=== PATIENT | male | born 1950 | race Caucasian/White ===

== ENCOUNTER 2018-10-05 00:10 | Inpatient (IN) | payer MEDICARE, OTHER ==
[2018-10-05] MEDS ORDERED: ONDANSETRON 4 MG INJ IV ×2 (02:00→07:00)
[2018-10-05] MEDS ORDERED: ACETAMINOPHEN 325 MG TAB PO ×2 (02:00→07:00)
[2018-10-05] MEDS: ONDANSETRON 4 MG INJ IV (02:24)
[2018-10-05] MEDS: morphine 4 MG/ML VIAL IV (02:24)
[2018-10-05 03:00] LABS: ADD MAN DIFF? NO
[2018-10-05 03:01] LABS: ABNORMAL IP MESSAGE 1; BASOPHILS % 0.4 % (0.0-2.0); EOSINOPHILS # 0.1 10^3/ul (0.0-0.5); EOSINOPHILS % 1.6 % (0.0-7.0); HEMATOCRIT 33.8 % (42.0-52.0); HEMOGLOBIN 10.6 g/dl (14.0-18.0); LYMPHOCYTES # 0.7 10^3/ul (0.8-2.9); LYMPHOCYTES % 9.2 % (15.0-51.0); MEAN CORPUSCULAR HEMOGLOBIN 28.5 pg (29.0-33.0); MEAN CORPUSCULAR HGB CONC 31.4 g/dl (32.0-37.0); MEAN CORPUSCULAR VOLUME 90.9 fl (82.0-101.0); MEAN PLATELET VOLUME 9.7 fl (7.4-10.4); MONOCYTE # 0.6 10^3/ul (0.3-0.9); MONOCYTES % 7.8 % (0.0-11.0); NEUTROPHILS % 80.7 % (39.0-77.0); PLATELET COUNT 88 10^3/UL (140-415); POSITIVE DIFF @See below; RED BLOOD COUNT 3.72 10^6/ul (4.70-6.10)
[2018-10-05 03:01] LABS: WHITE BLOOD COUNT 7.4 10^3/ul (4.8-10.8)
[2018-10-05 03:20] LABS: ANION GAP 8 (5-13); BLOOD UREA NITROGEN 34 mg/dl (7-20); CALCIUM 9.2 mg/dl (8.4-10.2); CARBON DIOXIDE 24 mmol/L (21-31); CHLORIDE 107 mmol/L (97-110); CREATININE 1.75 mg/dl (0.61-1.24); Estimated GFR 39 mL/min (>60); GLUCOSE 128 mg/dl (70-220); POTASSIUM 4.2 mmol/L (3.5-5.1); SODIUM 139 mmol/L (135-144)
[2018-10-05 03:22] LABS: INR 1.23; PROTIME 15.6 Sec (11.9-14.9); PT RATIO 1.2
[2018-10-05] MEDS ORDERED: HYDROCODONE/APAP (5/325) TAB PO (07:00)
[2018-10-05] MEDS ORDERED: ALBUTEROL/IPRATROPIUM (NEB) 3 ML AMP HHN (07:00)
[2018-10-05] MEDS ORDERED: NACL 0.9% 3 ML SYG IV (07:00)
[2018-10-05] MEDS ORDERED: GLUCOSE GEL 15 GRAM TUBE BUCCAL (08:00)
[2018-10-05] MEDS ORDERED: DEXTROSE 50% 50 ML SYRINGE IV ×2 (08:00)
[2018-10-05] MEDS ORDERED: GLUCAGON 1 MG INJ IM (08:00)
[2018-10-05] MEDS ORDERED: GLUCOSE GEL 15 GRAM TUBE PO ×2 (08:00)
[2018-10-05] MEDS: HYDROCODONE/APAP (5/325) TAB PO ×3 (08:57→21:50)
[2018-10-05] MEDS: HEPARIN 5,000 UNIT/1 ML VIAL SC ×2 (09:00→21:01)
[2018-10-05] MEDS: INSULIN ASPART [NOVOLOG] 3 ML PEN SC ×3 (09:00→17:39)
[2018-10-05] MEDS: FERROUS SULFATE (EC) 325 MG TAB PO (20:58)
[2018-10-05] MEDS: ASCORBIC ACID 500 MG TAB PO (20:59)
[2018-10-05] MEDS: APIXABAN 5 MG TABLET PO ×2 (20:59→21:00)
[2018-10-05] MEDS ORDERED: traMADol 50 MG TAB PO (21:30)
[2018-10-05] MEDS: MELATONIN 5 MG TABLET PO (23:05)
[2018-10-05] MEDS: DOCUSATE SODIUM 250 MG CAP PO (23:05)
[2018-10-06 01:30] LABS: CREATINE KINASE 34 IU/L (23-200)
[2018-10-06 01:39] LABS: CK INDEX 1.5
[2018-10-06 01:43] LABS: TROPONIN-I 0.017 ng/ml (0.000-0.120)
[2018-10-06] MEDS ORDERED: ACCU-CHEK XX (02:00)
[2018-10-06 05:12] LABS: ADD MAN DIFF? NO
[2018-10-06] MEDS: PANTOPRAZOLE (EC) 40 MG TAB PO (05:16)
[2018-10-06] MEDS: FUROSEMIDE 40 MG TAB PO ×2 (05:17→17:22)
[2018-10-06 05:19] LABS: ABNORMAL IP MESSAGE 1; BASOPHILS % 0.9 % (0.0-2.0); EOSINOPHILS # 0.3 10^3/ul (0.0-0.5); EOSINOPHILS % 5.5 % (0.0-7.0); HEMATOCRIT 32.3 % (42.0-52.0); LYMPHOCYTES % 21.4 % (15.0-51.0); MEAN CORPUSCULAR HEMOGLOBIN 28.7 pg (29.0-33.0); MEAN CORPUSCULAR VOLUME 92.6 fl (82.0-101.0); MEAN PLATELET VOLUME 9.6 fl (7.4-10.4); MONOCYTE # 0.4 10^3/ul (0.3-0.9); MONOCYTES % 8.4 % (0.0-11.0); NEUTROPHIL # 2.9 10^3/ul (1.6-7.5); NEUTROPHILS % 63.6 % (39.0-77.0); PLATELET COUNT 80 10^3/UL (140-415); POSITIVE DIFF @See below; RED BLOOD COUNT 3.49 10^6/ul (4.70-6.10); RED CELL DISTRIBUTION WIDTH 16.9 % (11.5-14.5)
[2018-10-06 05:19] LABS: WHITE BLOOD COUNT 4.5 10^3/ul (4.8-10.8)
[2018-10-06 05:47] LABS: CREATINE KINASE 26 IU/L (23-200)
[2018-10-06 05:58] LABS: ALANINE AMINOTRANSFERASE 31 IU/L (13-69); ALKALINE PHOSPHATASE 94 IU/L (42-121); ANION GAP 5 (5-13); ASPARTATE AMINO TRANSFERASE 39 IU/L (15-46); BILIRUBIN,INDIRECT 1.2 mg/dl (0-1.1); BILIRUBIN,TOTAL 1.2 mg/dl (0.2-1.3); BLOOD UREA NITROGEN 35 mg/dl (7-20); CALCIUM 8.7 mg/dl (8.4-10.2); CARBON DIOXIDE 26 mmol/L (21-31); CHLORIDE 105 mmol/L (97-110); CHOL/HDL RATIO 2.5 RATIO; CHOLESTEROL 98 mg/dl (100-200); CREATININE 1.32 mg/dl (0.61-1.24); Estimated GFR 54 mL/min (>60); GLUCOSE 113 mg/dl (70-220); HDL CHOLESTEROL 38 mg/dl (31-75); LDL CHOLESTEROL,CALCULATED 46 mg/dl; MAGNESIUM 2.6 mg/dl (1.7-2.5); PHOSPHORUS 4.4 mg/dl (2.5-4.9); POTASSIUM 4.2 mmol/L (3.5-5.1); SODIUM 136 mmol/L (135-144); TRIGLYCERIDES 70 mg/dl (0-149)
[2018-10-06 05:58] LABS: HEMOGLOBIN A1C 5.4 % (0-5.9)
[2018-10-06 06:00] LABS: CK-MB 0.53 ng/ml (0.0-2.4); TROPONIN-I 0.017 ng/ml (0.000-0.120)
[2018-10-06] MEDS ORDERED: PANTOPRAZOLE (EC) 40 MG TAB PO (06:00)
[2018-10-06] MEDS ORDERED: DOCUSATE SODIUM 100 MG CAP PO (09:00)
[2018-10-06] MEDS: APIXABAN 5 MG TABLET PO (09:27)
[2018-10-06] MEDS: FERROUS SULFATE (EC) 325 MG TAB PO ×2 (09:28→13:00)
[2018-10-06] MEDS: ASCORBIC ACID 500 MG TAB PO (09:28)
[2018-10-06] MEDS: CHOLECALCIFEROL 2,000 UNIT CAP PO (09:29)
[2018-10-06] MEDS: DOCUSATE SODIUM 250 MG CAP PO ×2 (09:29→21:05)
[2018-10-06] MEDS: METOPROLOL 25 MG TAB PO (09:30)
[2018-10-06] MEDS: SPIRONOLACTONE 50 MG TAB PO (09:31)
[2018-10-06] MEDS: HYDROCODONE/APAP (5/325) TAB PO ×3 (09:39→23:49)
[2018-10-06 13:27] LABS: CREATINE KINASE 28 IU/L (23-200)
[2018-10-06 13:40] LABS: CK INDEX 1.9; CK-MB 0.52 ng/ml (0.0-2.4); TROPONIN-I < 0.012 ng/ml (0.000-0.120)
[2018-10-06 16:27] LABS: ADD UMIC NO; UR ASCORBIC ACID 40 mg/dL (NEGATIVE); UR BILIRUBIN (Dip) NEGATIVE (NEGATIVE); UR BLOOD (Dip) NEGATIVE (NEGATIVE); UR CLARITY CLEAR (CLEAR); UR COLOR YELLOW (YELLOW); UR GLUCOSE (Dip) NEGATIVE (NEGATIVE); UR KETONES (Dip) NEGATIVE (NEGATIVE); UR LEUKOCYTE ESTERASE (Dip) NEGATIVE Leu/ul (NEGATIVE); UR NITRITE (Dip) NEGATIVE (NEGATIVE); UR SPECIFIC GRAVITY (Dip) 1.013 (1.003-1.030); UR TOTAL PROTEIN (Dip) NEGATIVE (NEGATIVE); UR UROBILINOGEN (Dip) NEGATIVE (NEGATIVE)
[2018-10-06 16:43] LABS: CREATININE,URINE RANDOM 121.99 mg/dl (20-370)
[2018-10-06 16:43] LABS: SODIUM,URINE RANDOM 13 mmol/L (30-90)
[2018-10-06] MEDS: DOCUSATE SODIUM 100 MG CAP PO (16:56)
[2018-10-06] MEDS: CLOTRIMAZOLE 1% 30 GM CR TOP (21:00)
[2018-10-06] MEDS: MELATONIN 5 MG TABLET PO (21:05)
[2018-10-06] MEDS: HEPARIN 5,000 UNIT/1 ML VIAL SC (21:15)
[2018-10-07 05:08] LABS: ADD MAN DIFF? NO
[2018-10-07 05:13] LABS: ABNORMAL IP MESSAGE 1; BASOPHILS % 0.7 % (0.0-2.0); EOSINOPHILS # 0.3 10^3/ul (0.0-0.5); EOSINOPHILS % 6.2 % (0.0-7.0); HEMATOCRIT 31.1 % (42.0-52.0); HEMOGLOBIN 9.6 g/dl (14.0-18.0); LYMPHOCYTES % 23.5 % (15.0-51.0); MEAN CORPUSCULAR HEMOGLOBIN 28.2 pg (29.0-33.0); MEAN CORPUSCULAR HGB CONC 30.9 g/dl (32.0-37.0); MEAN CORPUSCULAR VOLUME 91.5 fl (82.0-101.0); MEAN PLATELET VOLUME 9.9 fl (7.4-10.4); MONOCYTE # 0.3 10^3/ul (0.3-0.9); MONOCYTES % 7.9 % (0.0-11.0); NEUTROPHIL # 2.6 10^3/ul (1.6-7.5); NEUTROPHILS % 61.5 % (39.0-77.0); PLATELET COUNT 81 10^3/UL (140-415); POSITIVE DIFF @See below; RED CELL DISTRIBUTION WIDTH 16.7 % (11.5-14.5)
[2018-10-07 05:13] LABS: WHITE BLOOD COUNT 4.2 10^3/ul (4.8-10.8)
[2018-10-07] MEDS: PANTOPRAZOLE (EC) 40 MG TAB PO (05:28)
[2018-10-07] MEDS: HEPARIN 5,000 UNIT/1 ML VIAL SC ×3 (05:31→21:35)
[2018-10-07 05:33] LABS: IRON 42 ug/dl (35-150)
[2018-10-07 05:38] LABS: ANION GAP 6 (5-13); BLOOD UREA NITROGEN 35 mg/dl (7-20); CALCIUM 8.6 mg/dl (8.4-10.2); CARBON DIOXIDE 25 mmol/L (21-31); CHLORIDE 105 mmol/L (97-110); CREATININE 1.48 mg/dl (0.61-1.24); Estimated GFR 47 mL/min (>60); GLUCOSE 112 mg/dl (70-220); MAGNESIUM 2.4 mg/dl (1.7-2.5); PHOSPHORUS 3.7 mg/dl (2.5-4.9); POTASSIUM 4.2 mmol/L (3.5-5.1); SODIUM 136 mmol/L (135-144)
[2018-10-07 05:42] LABS: % IRON SATURATION 14 % SAT (22-52); TOTAL IRON BINDING CAPACITY 302 ug/dl (241-421)
[2018-10-07 06:08] LABS: FERRITIN 23.5 ng/ml (11.1-264.0)
[2018-10-07] MEDS: FUROSEMIDE 40 MG INJ IV (06:10)
[2018-10-07] MEDS: HYDROCODONE/APAP (5/325) TAB PO ×2 (07:19→23:46)
[2018-10-07] MEDS: DOCUSATE SODIUM 250 MG CAP PO ×2 (08:15→21:11)
[2018-10-07] MEDS: METOPROLOL 25 MG TAB PO (08:16)
[2018-10-07] MEDS: SPIRONOLACTONE 50 MG TAB PO (08:17)
[2018-10-07] MEDS: NA PHOSPHATE/BIPHOS 133 ML ENEMA PR (10:21)
[2018-10-07] MEDS: CLOTRIMAZOLE 1% 30 GM CR TOP ×2 (10:21→21:13)
[2018-10-07] MEDS: SOD FERRIC GLUC COMPLX 125 MG in SOD CHLORIDE 0.9% 100 ML IVPB (15:46)
[2018-10-07] MEDS: TORSEMIDE 20 MG PO (21:00)
[2018-10-07] MEDS: MELATONIN 5 MG TABLET PO (21:11)
[2018-10-08 06:10] LABS: ANION GAP 4 (5-13); BLOOD UREA NITROGEN 33 mg/dl (7-20); CALCIUM 8.6 mg/dl (8.4-10.2); CARBON DIOXIDE 25 mmol/L (21-31); CHLORIDE 105 mmol/L (97-110); CREATININE 1.36 mg/dl (0.61-1.24); Estimated GFR 52 mL/min (>60); GLUCOSE 93 mg/dl (70-220); MAGNESIUM 2.5 mg/dl (1.7-2.5); PHOSPHORUS 3.5 mg/dl (2.5-4.9); POTASSIUM 4.5 mmol/L (3.5-5.1); SODIUM 134 mmol/L (135-144)
[2018-10-08] MEDS: PANTOPRAZOLE (EC) 40 MG TAB PO (06:52)
[2018-10-08] MEDS: HEPARIN 5,000 UNIT/1 ML VIAL SC ×2 (06:55→13:18)
[2018-10-08] MEDS: TORSEMIDE 20 MG PO ×2 (06:59→17:59)
[2018-10-08] MEDS: SPIRONOLACTONE 50 MG TAB PO (07:01)
[2018-10-08] MEDS: CLOTRIMAZOLE 1% 30 GM CR TOP ×2 (09:09→20:22)
[2018-10-08] MEDS: DOCUSATE SODIUM 250 MG CAP PO ×2 (09:09→20:18)
[2018-10-08] MEDS: METOPROLOL 25 MG TAB PO (09:10)
[2018-10-08] MEDS: HYDROCODONE/APAP (5/325) TAB PO (13:12)
[2018-10-08] MEDS: SOD FERRIC GLUC COMPLX 125 MG in SOD CHLORIDE 0.9% 100 ML IVPB (13:12)
[2018-10-08] MEDS: POLYETHYLENE GLYCOL 17 GM PACKET PO (15:00)
[2018-10-08 17:31] LABS: CREATININE, RANDOM URINE 114 mg/dL (20-320); MICROALBUMIN <0.2 mg/dL; MICROALBUMIN/CREATININE RATIO NOTE (<30)
[2018-10-08] MEDS: APIXABAN 5 MG TABLET PO (20:18)
[2018-10-08] MEDS: MELATONIN 5 MG TABLET PO (20:21)
[2018-10-09] MEDS: HYDROCODONE/APAP (5/325) TAB PO ×3 (01:03→14:56)
[2018-10-09] MEDS: PANTOPRAZOLE (EC) 40 MG TAB PO (05:27)
[2018-10-09 06:01] LABS: ANION GAP 5 (5-13); BLOOD UREA NITROGEN 34 mg/dl (7-20); CALCIUM 8.9 mg/dl (8.4-10.2); CARBON DIOXIDE 26 mmol/L (21-31); CHLORIDE 104 mmol/L (97-110); CREATININE 1.41 mg/dl (0.61-1.24); Estimated GFR 50 mL/min (>60); GLUCOSE 133 mg/dl (70-220); MAGNESIUM 2.3 mg/dl (1.7-2.5); PHOSPHORUS 4.1 mg/dl (2.5-4.9); POTASSIUM 4.5 mmol/L (3.5-5.1); SODIUM 135 mmol/L (135-144)
[2018-10-09] MEDS: SPIRONOLACTONE 50 MG TAB PO (07:42)
[2018-10-09] MEDS: TORSEMIDE 20 MG PO ×2 (07:43→18:46)
[2018-10-09] MEDS: DOCUSATE SODIUM 250 MG CAP PO ×2 (08:56→21:51)
[2018-10-09] MEDS: CLOTRIMAZOLE 1% 30 GM CR TOP ×2 (08:57→20:54)
[2018-10-09] MEDS: APIXABAN 5 MG TABLET PO ×2 (08:57→20:52)
[2018-10-09] MEDS: METOPROLOL 25 MG TAB PO ×2 (08:57→20:48)
[2018-10-09] MEDS: POLYETHYLENE GLYCOL 17 GM PACKET PO (08:58)
[2018-10-09] MEDS: SOD FERRIC GLUC COMPLX 125 MG in SOD CHLORIDE 0.9% 100 ML IVPB (13:47)
[2018-10-09] MEDS: MELATONIN 5 MG TABLET PO (20:48)
[2018-10-10 05:24] LABS: ANION GAP 7 (5-13); BLOOD UREA NITROGEN 39 mg/dl (7-20); CALCIUM 8.9 mg/dl (8.4-10.2); CARBON DIOXIDE 24 mmol/L (21-31); CHLORIDE 105 mmol/L (97-110); CREATININE 1.68 mg/dl (0.61-1.24); Estimated GFR 41 mL/min (>60); GLUCOSE 124 mg/dl (70-220); MAGNESIUM 2.2 mg/dl (1.7-2.5); PHOSPHORUS 4.4 mg/dl (2.5-4.9); POTASSIUM 4.4 mmol/L (3.5-5.1); SODIUM 136 mmol/L (135-144)
[2018-10-10] MEDS: PANTOPRAZOLE (EC) 40 MG TAB PO (05:57)
[2018-10-10] MEDS: POLYETHYLENE GLYCOL 17 GM PACKET PO ×3 (08:08→09:00)
[2018-10-10] MEDS: APIXABAN 5 MG TABLET PO ×2 (08:08→20:30)
[2018-10-10] MEDS: DOCUSATE SODIUM 250 MG CAP PO ×2 (08:08→20:30)
[2018-10-10] MEDS: TORSEMIDE 20 MG PO ×2 (08:08→20:37)
[2018-10-10] MEDS: SPIRONOLACTONE 50 MG TAB PO (08:12)
[2018-10-10] MEDS: METOPROLOL 25 MG TAB PO ×2 (08:12→20:36)
[2018-10-10] MEDS: CLOTRIMAZOLE 1% 30 GM CR TOP (08:14)
[2018-10-10] MEDS: HYDROCODONE/APAP (5/325) TAB PO ×2 (08:59→17:48)
[2018-10-10] MEDS: DOCUSATE SODIUM 100 MG CAP PO ×2 (13:02→17:54)
[2018-10-10] MEDS: MELATONIN 5 MG TABLET PO (20:30)
== END 2018-10-10 21:00 | DRG 563 ==
LOC: E/R 00:10 → MS1 01:58
DX: S82.831A Other fracture of upper and lower end of right fibula, initial encounter for closed fracture (principal); Z68.43 Body mass index [BMI] 50.0-59.9, adult; N17.9 Acute kidney failure, unspecified; D61.818 Other pancytopenia; E87.0 Hyperosmolality and hypernatremia; I48.91 Unspecified atrial fibrillation; E66.01 Morbid (severe) obesity due to excess calories; E78.5 Hyperlipidemia, unspecified; B19.20 Unspecified viral hepatitis C without hepatic coma; N18.9 Chronic kidney disease, unspecified; D64.9 Anemia, unspecified; D50.9 Iron deficiency anemia, unspecified; Z95.0 Presence of cardiac pacemaker; Z95.2 Presence of prosthetic heart valve; K76.9 Liver disease, unspecified; Z86.73 Personal history of transient ischemic attack (TIA), and cerebral infarction without residual deficits; E11.22 Type 2 diabetes mellitus with diabetic chronic kidney disease; Z87.891 Personal history of nicotine dependence; W19.XXXA Unspecified fall, initial encounter; B35.4 Tinea corporis; I44.7 Left bundle-branch block, unspecified; E83.9 Disorder of mineral metabolism, unspecified; K27.9 Peptic ulcer, site unspecified, unspecified as acute or chronic, without hemorrhage or perforation
CPT/HCPCS: 71045; 73562; 73590; 73610-RT; 73700; 76775; 80048; 80053; 80061; 81003; 82043; 82550; 82553; 82728; 82962; 83036; 83540; 83735; 84100; 84155; 84300; 84443; 84484; 85025; 85610; 86850; 86900; 86901; 93005; 93306; 97110; 97162; 97530; 99285-25